=== PATIENT | female | born 1985 | race Two or more races ===

== ENCOUNTER 2025-03-23 14:39 | Emergency (ER) | payer SELFPAY ==
[2025-03-23 14:40] VITALS: BP 114/90; PULSE 102; RESP 18; TEMP 36.6; O2SAT 98
--- NOTE | 2025-03-23 15:12 | ED.GENADUL_ITS ---
Discharge Plan Disposition Patient Disposition: Home Condition: Stable Discharge Details Clinical Impression: Encounter for removal of sutures [facility] Provider: [facility] Provider: Tutu Norton Home Meds and New Rx's Prescriptions: No Action dextroamphetamine-amphetamine [Adderall] 10 mg tablet 10 mg PO BID Rx Instructions: administer doses at least 4-6 hours apart progesterone micronized 200 mg capsule 200 mg PO QHS Discharge Instructions Instructions: Stitches Removal Additional Instructions: 2 sutures were removed, your wound appears to be healing well, continue local wound care with soap and water, topical cream or emollient as needed. HPI General Date/Time Provider Initiated Documentation: 03/23/25 14:58 . Limitations to Documentation: no limitations . Information obtained by: patient . HPI Narrative: 40-year-old female without significant past medical history presents for evaluation for suture removal. Patient reports that last Friday she had her seek sutures placed at [place] where she is from, but she is in the area visiting, she denies any pain redness swelling or drainage from the area. Related Data Home Medications ?Medication ?Instructions ?Recorded ?Confirmed dextroamphetamine-amphetamine 10 10 mg PO BID 03/23/25 03/23/25 mg tablet (Adderall) progesterone micronized 200 mg 200 mg PO QHS 03/23/25 03/23/25 capsule Allergies Allergy/AdvReac Type Severity Reaction Status Date / Time codeine AdvReac Dizziness/L Verified 03/23/25 14:46 ighthead General Stated Complaint: SutureRem JESSE: 4 Exam Narrative Exam Narrative: Vasomotor review of Systems: All systems reviewed & are unremarkable except as noted in HPI and below Well-developed, no acute distress NCAT right hand palmar the in her emesis with 1 cm laceration [address], wound well-approximated, clean and no signs of infection Course Vital Signs Vital signs: Vital Signs Temperature 36.6 C 03/23/25 14:40 Pulse 102 H 03/23/25 14:40 Respiratory Rate 18 03/23/25 14:40 Blood Pressure 114/90 03/23/25 14:40 Pulse Oximetry 98 03/23/25 14:40 Temperature 36.6 C 03/23/25 14:40 Pulse 102 H 03/23/25 14:40 Respiratory Rate 18 03/23/25 14:40 Blood Pressure 114/90 03/23/25 14:40 Pulse Oximetry 98 03/23/25 14:40 Oxygen Delivery Method Room Air 03/23/25 14:40 Oxygen Flow Rate 0 03/23/25 14:40 Pain Level 0 03/23/25 14:40 Procedure Foreign Body Removal Location of procedure: Other (right hand 2 sutures removed) Medical Decision Making Emergent evaluation of left hand injury. Wound was closed at outside facility. [address] Wound appears well-approximated and healing appropriately without signs of infection. 2 sutures were removed without complication. Patient tolerated well, discharged in good condition. [facility] All Active Problems (Updated 03/23/25 @ 14:59 by Tutu Norton MD) Encounter for removal of sutures (Acute) Social History Smoking/Tobacco Use Status: Never Smoking risk assessment performed?: Yes Alcohol Intake: current Alcohol Intake frequency: 0-2 drinks per day Substance use type: marijuana Housing: house Do you feel safe at home: Yes Do you feel safe in your relationship?: Yes
== END 2025-03-23 15:15 | disposition home or self-care (01) ==
LOC: ER 15:11
PROVIDERS: Emergency Provider Emergency Medicine
DX: Z48.01 Encounter for change or removal of surgical wound dressing (principal)
CPT/HCPCS: 99281 ×2